=== PATIENT | male | born 2000 | race Two or more races ===

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

== ENCOUNTER 2020-03-04 21:25 | Emergency (ER) | payer MEDICAID ==
[~2020-03-04] VITALS: Ht 162.6 cm; Wt 63.5 kg
[2020-03-05 00:55] LABS: Basophils # (auto) 0 10 ^3/uL (0-0.2); Basophils % (auto) 0.1 % (0.0-2.0); Eosinophils # (auto) 0 10 ^3/uL (0-0.8); Eosinophils % (auto) 0.1 % (0.0-7.0); Hematocrit 46.5 % (41.0-53.0); Hemoglobin 15.6 g/dL (13.5-17.5); Lymphocytes # (auto) 1.2 10 ^3/uL (0.4-5.4); Lymphocytes % (auto) 6.1 % (10.0-50.0); Mean Corpuscular Hemoglobin 29.2 pg (28.0-32.0); Mean Corpuscular Hgb Conc. 33.5 g/dL (32.0-36.0); Mean Corpuscular Volume 87.1 fL (80.0-100.0); Monocytes # (auto) 1.2 10 ^3/uL (0-1.3); Monocytes % (auto) 6.3 % (0.0-12.0); Neutrophils # (auto) 17.1 10 ^3/uL (1.6-8.6); Neutrophils % (auto) 87.4 % (37.0-80.0); Platelet Count (auto) 304 10^3/uL (140-450); Red Blood Cells 5.34 10^6/uL (4.5-5.90); Red Cell Distribution Width 12.8 % (11.8-14.3); White Blood Cell 19.6 10^3/uL (4.4-10.8)
[2020-03-05 01:15] LABS: Salicylate < 1.7 mg/dL (2.8-20.0)
[2020-03-05 01:16] LABS: Alanine Aminotransferase 67 U/L (16-61); Albumin 4.3 g/dL (3.4-5.0); Anion Gap 4 (5-15); Aspartate Aminotransferase 45 U/L (15-37); BUN/Creatinine Ratio 14.1; Blood Urea Nitrogen 12 mg/dL (7-18); Calcium 8.4 mg/dL (8.5-10.1); Carbon Dioxide 28 mmol/L (21-32); Chloride 105 mmol/L (98-107); GFR African American 149 mL/min; GFR Non-African American 123 mL/min; Glucose 118 mg/dL (74-106); Magnesium 2.2 mg/dL (1.6-2.6); Sodium 137 mmol/L (136-145)
[2020-03-05 01:17] LABS: Urine Bacteria FEW /hpf (None Seen); Urine Blood Negative /uL (Negative); Urine Hyaline Cast FEW /lpf (0 - 2); Urine Mucus FEW (None Seen); Urine Specific Gravity 1.015 (1.001-1.035); Urine WBC 9 /hpf (0 - 3)
[2020-03-05 01:26] LABS: Acetaminophen < 2.0 ug/mL (10-30)
[2020-03-05 01:28] LABS: Amphetamine Screen, Urine NEGATIVE (NEGATIVE); Barbiturate Scree,Urine NEGATIVE (NEGATIVE); Benzodiazephine Screen, Urine POSITIVE (NEGATIVE); Cannabinoid Screen, Urine POSITIVE (NEGATIVE); Cocaine Screen, Urine NEGATIVE (NEGATIVE); Phencyclidine Screen, Urine NEGATIVE (NEGATIVE)
[2020-03-05 01:34] LABS: Alkaline Phosphatase 94 U/L (45-117); Bilirubin, Total 0.2 mg/dL (0.2-1.0); Total Protein 7.5 g/dL (6.4-8.2)
[2020-03-05 01:36] LABS: Opiate Scree,Urine NEGATIVE (NEGATIVE)
[2020-03-05 01:37] LABS: Blood Alcohol < 3.0 mg/dL (0-5)
[2020-03-05 01:38] LABS: Alcohol, Urine < 3.0 mg/dL (0-10)
[2020-03-05 03:25] VITALS: BP 117/67
== END 2020-03-05 03:45 | disposition home or self-care (01) ==
LOC: ER 21:25 → EDBD 21:25 → ER 03-05 03:45
DX: F19.10 Other psychoactive substance abuse, uncomplicated (principal); D72.829 Elevated white blood cell count, unspecified; F41.9 Anxiety disorder, unspecified
CPT/HCPCS: 36415; 71045; 80053; 80307; 80320; 80329; 81001; 83735; 85025; 93005